=== PATIENT | female | born 2005 | race Caucasian/White ===

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

== ENCOUNTER 2024-07-01 08:16 | Emergency (ER) | payer OTHER, SELFPAY ==
[2024-07-01 08:18] VITALS: BP 130/76; PULSE 109; RESP 18; TEMP 36.8; O2SAT 96; BMI 25.8
--- NOTE | 2024-07-01 08:34 | XR_ITS ---
PROCEDURE INFORMATION: Exam: XR Left Ankle Exam date and time: 07/01/2024 8:39 AM Age: 18 years old Clinical indication: Pain and injury or trauma; Fall; Sprain or strain and swelling (edema); Foot; Left; Additional info: Inversion injury TECHNIQUE: Imaging protocol: Radiologic exam of the left ankle. Views: 3 or more views. COMPARISON: CR XR FOOT LT MIN 3V 07/01/2024 8:36 AM FINDINGS: Bones/joints: Normal. No evidence of fracture or dislocation Soft tissues: Normal. IMPRESSION: No acute findings.
--- NOTE | 2024-07-01 08:34 | XR_ITS ---
PROCEDURE INFORMATION: Exam: XR Left Foot Exam date and time: 07/01/2024 8:36 AM Age: 18 years old Clinical indication: Pain and injury or trauma; Fall; Sprain or strain; Foot; Left; Additional info: Inversion injury L dorsal swelling tender TECHNIQUE: Imaging protocol: Radiologic exam of the left foot. Views: 3 or more views. COMPARISON: CR XR KNEE LT 3V 04/16/2021 9:31 AM FINDINGS: Bones/joints: Normal. Soft tissues: Normal. IMPRESSION: No acute findings.
--- NOTE | 2024-07-01 08:35 | HMH.EDGENADL ---
Discharge Plan Disposition Patient Disposition: Home, Self-Care Chief Complaint: Extremity Injury, Lower Prescriptions Prescriptions: No Action Haleigh 14 mcg/24 hrs (3 yrs) 13.5 mg intrauterine device intrauterine nystatin 100,000 unit/gram cream topical Patient Comments: APPLY 1 APPLICATION TO AFFECTED AREA TWICE DAILY FOR 14 DAYS triamcinolone acetonide 0.1 % ointment topical Patient Comments: APPLY 1 APPLICATION TOPICALLY TWICE DAILY FOR 14 DAYS Referrals Follow up/Referrals: Kat Gilbert APRN [Primary Care Provider] - See instructions Td Salcedo DO [Staff Physician] - See instructions Activity Restrictions/Add. Instructions Additional Instructions/Restrictions: At this time it was felt you are safe to be discharged home. If new or worsening symptoms please do not hesitate to return the emergency department. Please use your crutches and limit weightbearing today, starting tomorrow do weightbearing as tolerated however do not try and push things too quickly, please take Tylenol, ibuprofen, rest, elevate your extremity and use ice throughout the course until it improves. If it is not improving please call and schedule appoint with Dr. Salcedo as you are able. Clinical Impressions Clinical Impression: Foot trauma Print Language Print Language: Chinese Discharge ED Provider: Michael Cortez General Adult HPI General Chief complaint: Extremity Injury, Lower Stated complaint: AO 07/01/24 left foot inj Time Seen by Provider: 07/01/24 08:25 Mode of Arrival: Ambulatory Source of Information: Patient Limitations: No Limitations Description of Symptoms (Recalled from ER Triage Doc. by RN): c/o left foot/ankle pain and swelling, states she got up to use the bathroom around 1 this morning and stepped wrong on her foot causing pain with walking History of Present Illness HPI narrative: Patient 18-year-old female with no pertinent past medical history presents emergency department for evaluation of traumatic left foot pain. On[facility] an inversion injury to her left dorsal lateral foot which has gotten progressively worse in terms of swelling. There is associated limited ability to bear weight. Due to persistent symptoms she presents here for continued evaluation. No other trauma. Related Data Home Medications ?Medication ?Instructions ?Recorded ?Confirmed levonorgestrel 14 mcg/24 hr (up to intrauterine 11/18/23 11/18/23 3 yrs) 13.5 mg intrauterine device ([place]) nystatin 100,000 unit/gram topical topical 11/18/23 11/18/23 cream triamcinolone acetonide 0.1 % topical 11/18/23 11/18/23 topical ointment Allergies Allergy/AdvReac Type Severity Reaction Status Date / Time No Known Allergies Allergy Verified 11/18/23 09:35 [facility] Disclaimer: The information contained in this section may have been updated after the patient was seen, as this information can be updated by other users. 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 Ovarian cyst Surgical History No significant past surgical history Family History Other Hypertension Social History Smoking Status: Never smoker alcohol intake: never current occupational status: student Travel in the last 8 weeks: None Other 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 Have you received the Flu Vaccine for this season: No Have you received the Pneumonia Vaccine: No ROS Obtained: Yes Systems reviewed as appropriate & no additional complaints except as documented Physical Exam General General appearance: alert and in no apparent distress Head Head exam: atraumatic and normocephalic Eye Eye exam: Present PERRL Neck Neck exam: Present normal inspection Chest Chest inspection: Present normal inspection and symmetric chest wall rise Respiratory Respiratory exam: Absent respiratory distress Cardiovascular Cardiovascular exam: Present regular rate and normal rhythm Extremities Exam Extremities exam: Present other (Swelling over the left lateral dorsal foot with tenderness, palpable dorsal pedal pulse. Capillary refill preserved distally.) Neurological Exam Neurological exam: Present alert Psychiatric Psychiatric exam: Present normal affect Skin Skin exam: Present warm and dry Medical Decision Making Medical Records Screening: Per USPSTF and CDC recommendations, given the prevalence of disease in our region, it is our hospital?s policy to screen for HIV and viral Hepatitis for all patients aged 18 and over and those with ongoing risk factors. Efren Inquiry Pt receiving controlled substance: No Vital Signs: 07/01/24 08:18 Temperature 98.2 F Temperature Source Oral Pulse Rate [Left Radial] 109 H Respiratory Rate 18 Blood Pressure [Right Arm] 130/76 Blood Pressure Mean [Right Arm] 94 Blood Pressure Source [Right Arm] Automatic Cuff Blood Pressure Position [Right Arm] Sitting 02 Sat by Pulse Oximetry 96 Oxygen Delivery Method Room Air Orders (Tests/Meds): ED MEDICATIONS Discontinued Medications Generic Name Dose Route Start Last Admin Trade Name Tiffany PRN Reason Stop Dose Admin Acetaminophen 1,000 mg 07/01/24 08:34 07/01/24 08:53 Acetaminophen 500mg Tab PO 07/01/24 08:35 1,000 mg ONCE ONE Administration Ibuprofen 200 mg 07/01/24 08:34 07/01/24 08:53 Ibuprofen 200mg/10ml Susp Udc PO 07/01/24 08:35 200 mg ONCE ONE Administration ORDERS Category Date Time Status Ankle XR - Left minimum 3 Views [XR ankle LT min 3V] Exams 07/01/24 08:34 Taken Stat Foot XR left minimum 3 views [XR foot LT min 3V] Stat Exams 07/01/24 08:34 Taken Medical Decision Narrative: In summary patient is a 18-year-old female past medical history described above who presents to the emergency department for evaluation of traumatic foot pain. Patient is hemodynamically stable nontoxic-appearing upon arrival, afebrile. Differential diagnosis include fracture, strain, among others. Workup will be conducted with plain film of the left ankle and foot, initial inventions include Tylenol and ibuprofen. X-rays informally interpreted by me, no acute significantly displaced fracture. Given this patient was placed in [place] shoe and already has crutches and will be weightbearing as tolerated and will follow-up with Dr. Salcedo on an outpatient basis. Critical Care Critical Care Time Critical Care Time: No
--- NOTE | 2024-07-01 08:45 | PC.NURSE ---
Pt out of room with Rad for x-ray
--- NOTE | 2024-07-01 08:45 | PC.NURSE ---
PT TO XR
--- NOTE | 2024-07-01 08:52 | PC.NURSE ---
Patient is back in room from xray
[2024-07-01] MEDS: ACETAMINOPHEN 500MG TAB 1000 MG PO (08:53)
[2024-07-01] MEDS: IBUPROFEN 200MG/10ML SUSP UDC 200 MG PO (08:53)
--- NOTE | 2024-07-01 09:20 | PC.NURSE ---
PT PROVIDED HARD-SOLE SHOE, HAS HER OWN CRUTCHES
[2024-07-01 09:25] VITALS: BP 128/70; PULSE 90; RESP 16; TEMP 36.7; O2SAT 100
--- NOTE | 2024-07-01 11:30 | PC.NURSE ---
PT NOTIFIED OF XR RESULTS
== END 2024-07-01 09:25 | disposition home or self-care (01) ==
PROVIDERS: Emergency Provider Emergency Medicine; PCP Nurse Practitioner Family
DX: S99.922A Unspecified injury of left foot, initial encounter (principal); M79.672 Pain in left foot; M25.572 Pain in left ankle and joints of left foot; X50.1XXA Overexertion from prolonged static or awkward postures, initial encounter; Y93.89 Activity, other specified; Y92.003 Bedroom of unspecified non-institutional (private) residence as the place of occurrence of the external cause
CPT/HCPCS: 73610; 73630; 99283

== ENCOUNTER 2024-07-14 11:24 | Outpatient (CLI) | payer OTHER, SELFPAY ==
--- NOTE | 2024-07-14 11:28 | XR_ITS ---
PROCEDURE INFORMATION: Exam: XR Left Foot Complete; Alignment Exam date and time: 07/14/2024 12:03 PM Age: 18 years old Clinical indication: Pain; Foot; Left; Additional info: Sprain of lt foot, sequela TECHNIQUE: Imaging protocol: Radiologic exam of the left foot. Views: 3 or more views. Total images: 3 COMPARISON: CR XR FOOT LT MIN 3V 07/01/2024 8:36 AM FINDINGS: Bones/joints: No evidence of acute fracture or dislocation. Soft tissues: Lateral soft tissue swelling. IMPRESSION: 1. No evidence of acute fracture or dislocation. 2. Lateral soft tissue swelling.
== END 2024-07-14 23:59 | disposition home or self-care (01) ==
LOC: RAD 11:25
PROVIDERS: PCP Internal Medicine Adolescent Medicine; Visit Provider Nurse Practitioner Family
DX: M79.672 Pain in left foot (principal); S93.602S Unspecified sprain of left foot, sequela
CPT/HCPCS: 73630